=== PATIENT | male | born 1980 | race Two or more races ===

== ENCOUNTER 2018-09-04 14:42 | Inpatient (IN) | payer OTHER ==
[~2018-09-04] VITALS: Ht 175.3 cm; Wt 81.2 kg
[2018-09-15] MEDS ORDERED: OMEPRAZOLE20 MG PO (08:27)
[2018-09-15] MEDS ORDERED: PERCOCET 5-3251 EACH PO (08:27)
[2018-09-15] MEDS ORDERED: INTESTINEX680 M1 PO (08:27)
== END 2018-09-15 10:22 | disposition home or self-care (01) | DRG 331 ==
LOC: ADM 09-08 14:15 → EDSTATUS 09-08 14:15 → O/R 09-12 06:45 → SURH 09-12 07:00 → SURG 09-12 15:21
PROVIDERS: ADMIT Surgery
PROC: 07TC4ZZ Resection of Pelvis Lymphatic, Percutaneous Endoscopic Approach (ICD-10-PCS; 2018-09-12)
PROC: 0DTN4ZZ Resection of Sigmoid Colon, Percutaneous Endoscopic Approach (ICD-10-PCS; principal; 2018-09-12 07:00)
DX: C19 Malignant neoplasm of rectosigmoid junction (principal); R59.0 Localized enlarged lymph nodes; D50.0 Iron deficiency anemia secondary to blood loss (chronic)

== ENCOUNTER → 2018-09-05 | Outpatient (CLI) | payer OTHER ==
[~2018-09-05] MED LIST: INTESTINEX680 M1 PO; OMEPRAZOLE20 MG PO; PERCOCET 5-3251 EACH PO
== END | disposition home or self-care (01) ==
LOC: NUCLEAR 10:32
DX: C19 Malignant neoplasm of rectosigmoid junction (principal)
CPT/HCPCS: 78815; A9552

== ENCOUNTER 2018-09-11 11:13 | Day surgery (SDC) | payer OTHER | END 2018-09-11 14:25 | disposition home or self-care (01) | LOC: AMB-ENDOS 11:13 | DX: C19 Malignant neoplasm of rectosigmoid junction (principal) ==

== ENCOUNTER 2018-10-17 07:39 | Day surgery (SDC) | payer OTHER ==
[2018-10-17] MEDS ORDERED: PERCOCET 5-3251 EACH PO (10:50)
== END 2018-10-17 13:20 | disposition home or self-care (01) ==
LOC: CIR.AMB 07:39
DX: C19 Malignant neoplasm of rectosigmoid junction (principal)
CPT/HCPCS: 36561; C1751

== ENCOUNTER 2019-07-27 06:45 | Day surgery (SDC) | payer OTHER | END 2019-07-27 11:10 | disposition home or self-care (01) | LOC: AMB-ENDOS 06:45 | DX: D12.0 Benign neoplasm of cecum (principal); D12.4 Benign neoplasm of descending colon ==

== ENCOUNTER 2020-08-30 08:39 | Outpatient (CLI) | payer OTHER | END 2020-08-30 08:51 | disposition home or self-care (01) | LOC: NUCLEAR 08:39 | PROVIDERS: ATTEND Internal Medicine | DX: C19 Malignant neoplasm of rectosigmoid junction (principal); Z51.11 Encounter for antineoplastic chemotherapy; R91.1 Solitary pulmonary nodule | CPT/HCPCS: 78815; A9552 ==

== ENCOUNTER 2022-02-12 07:42 | Outpatient (CLI) | payer OTHER | END 2022-02-12 07:44 | disposition home or self-care (01) | LOC: NUCLEAR 07:42 | PROVIDERS: ATTEND Internal Medicine | DX: C19 Malignant neoplasm of rectosigmoid junction (principal); C78.01 Secondary malignant neoplasm of right lung | CPT/HCPCS: 78812; A9552 ==

== ENCOUNTER 2023-01-08 12:41 | Outpatient (CLI) | payer OTHER | END 2023-01-08 12:42 | disposition home or self-care (01) | LOC: LAB 12:41 | PROVIDERS: ATTEND Internal Medicine Pulmonary Disease | DX: Z01.811 Encounter for preprocedural respiratory examination (principal) ==

== ENCOUNTER 2023-01-30 08:59 | Inpatient (IN) | payer OTHER ==
[~2023-01-30] VITALS: Ht 175.3 cm; Wt 72.6 kg
[2023-01-30] MEDS ORDERED: CIALIS5 MG PO (11:12)
[2023-02-09] MEDS ORDERED: LOPERAMIDE2 MG PO (16:34)
[2023-02-09] MEDS ORDERED: HYOSCYAMINE0.125 M1 SL (16:34)
[2023-02-09] MEDS ORDERED: PERCOCET 5-3251 EACH PO (16:35)
== END 2023-02-09 17:02 | disposition home or self-care (01) | DRG 330 ==
LOC: O/R 02-05 07:26 → SURG 02-05 09:15 → O/R 02-05 13:27 → SURH 02-05 16:45
PROVIDERS: Surgery; ADMIT Surgery; ATTEND Surgery
PROC: 0DTN4ZZ Resection of Sigmoid Colon, Percutaneous Endoscopic Approach (ICD-10-PCS; 2023-02-05)
PROC: 0DTP4ZZ Resection of Rectum, Percutaneous Endoscopic Approach (ICD-10-PCS; 2023-02-05)
PROC: 0T7D3DZ Dilation of Urethra with Intraluminal Device, Percutaneous Approach (ICD-10-PCS; 2023-02-05)
PROC: 0D1B4Z4 Bypass Ileum to Cutaneous, Percutaneous Endoscopic Approach (ICD-10-PCS; principal; 2023-02-05 10:30)
PROC: 07BB4ZZ Excision of Mesenteric Lymphatic, Percutaneous Endoscopic Approach (ICD-10-PCS; 2023-02-05 10:30)
DX: C20 Malignant neoplasm of rectum (principal); K62.5 Hemorrhage of anus and rectum; R59.0 Localized enlarged lymph nodes; Z20.822 Contact with and (suspected) exposure to COVID-19

== ENCOUNTER 2023-02-11 15:16 | Inpatient (IN) | payer OTHER ==
[~2023-02-11] VITALS: Ht 175.3 cm; Wt 83.5 kg
[~2023-02-11 15:16] MED LIST changes: +CIALIS5 MG PO; +HYOSCYAMINE0.125 M1 SL; +LOPERAMIDE2 MG PO
[2023-02-12] MEDS ORDERED: LOPERAMIDE2 MG (09:30)
[2023-02-14] MEDS ORDERED: CIPRO500 MG PO (12:20)
[2023-02-14] MEDS ORDERED: HYOSCYAMINE0.125 M1 SL (12:20)
[2023-02-14] MEDS ORDERED: METRONIDAZOLE500 MG PO (12:22)
== END 2023-02-14 13:42 | disposition home or self-care (01) | DRG 389 ==
LOC: ER 15:16 → SURG 21:50
PROVIDERS: ADMIT Surgery; ATTEND Surgery
PROC: BW21YZZ Computerized Tomography (CT Scan) of Abdomen and Pelvis using Other Contrast (ICD-10-PCS; principal; 2023-02-11)
PROC: 02HV33Z Insertion of Infusion Device into Superior Vena Cava, Percutaneous Approach (ICD-10-PCS; 2023-02-12)
DX: K56.699 Other intestinal obstruction unspecified as to partial versus complete obstruction (principal); C19 Malignant neoplasm of rectosigmoid junction; K52.89 Other specified noninfective gastroenteritis and colitis; D64.9 Anemia, unspecified; Z93.2 Ileostomy status; Z20.822 Contact with and (suspected) exposure to COVID-19

== ENCOUNTER 2023-10-03 11:15 | Inpatient (IN) | payer OTHER ==
[~2023-10-03] VITALS: Ht 175.3 cm; Wt 76.2 kg
[~2023-10-03 11:15] MED LIST changes: +CIPRO500 MG PO; +LOPERAMIDE2 MG; +METRONIDAZOLE500 MG PO
[2023-10-11] MEDS ORDERED: METRONIDAZOLE/SODIUM CHLORIDE 500 MG/100 ML PIGGYBACK IV ONE ×2 (09:46→11:30)
[2023-10-11] MEDS ORDERED: CEFTRIAXONE SODIUM 2,000 MG VIAL ONE (09:46)
[2023-10-11] MEDS ORDERED: POVIDONE-IODINE 118 ML BOTT TOP ONE ×2 (11:06→11:30)
[2023-10-11] MEDS ORDERED: CEFTRIAXONE SODIUM 2,000 MG VIAL IV ONE (11:30)
[2023-10-11] MEDS ORDERED: ONDANSETRON HCL 2 MG/ML VIAL IV PRN (12:30)
[2023-10-11] MEDS ORDERED: DEXTROSE 50 % IN WATER 0.5 G/ML DISP.SYRIN IV PRN (12:30)
[2023-10-11] MEDS ORDERED: MORPHINE SULFATE 4 MG/ML CARTRIDGE IV PRN (12:30)
[2023-10-11] MEDS ORDERED: RINGERS SOLUTION,LACTATED 1,000 ML IV SCH (12:30)
[2023-10-11] MEDS ORDERED: OxyCODONE HCL 5 MG TABLET (ROXICODONE) PO PRN (12:30)
[2023-10-11] MEDS ORDERED: HYOSCYAMINE SULFATE 0.125 MG TAB.SUBL SL SCH (13:00)
[2023-10-11] MEDS ORDERED: ACETAMINOPHEN 500 MG GEL..CAP PO SCH (14:00)
[2023-10-11] MEDS ORDERED: GABAPENTIN 300 MG CAPSULE PO SCH (17:00)
[2023-10-11] MEDS ORDERED: POLYETHYLENE GLYCOL 3350 17 GM BLIST.PACK PO SCH (17:00)
[2023-10-11 17:08] LABS: HEMOGLOBIN 13.6 g/dL (13-16.00); MEAN CELL VOLUME 87.8 fL (80.0-100.00); MEAN CORPUSCULAR HEMOGLOBIN 29.2 pg (27.00-32.0); MEAN CORPUSCULAR HGB CONC 33.2 g/dl (32.0-36.0); PLATELET COUNT 217 K/uL (150-450); RED BLOOD COUNT 4.67 M/uL (4.00-6.00); RED CELL DISTRIBUTION WIDTH 14.2 % (11.5-14.5)
[2023-10-11 17:43] LABS: CALCIUM 9.2 mg/dL (8.5-10.1); CREATININE SERUM 1.08 mg/dL (0.70-1.30); GFR 75.35; MAGNESIUM 1.9 mg/dL (1.8-2.4); PHOSPHOROUS 3.4 mg/dL (2.5-4.9); POTASSIUM 4.36 mEq/L (3.5-5.1)
[2023-10-11] MEDS ORDERED: FAMOTIDINE/PF 20 MG/2 ML VIAL IV PUSH SCH (21:00)
[2023-10-11] MEDS ORDERED: CELECOXIB 200 MG CAPSULE PO SCH (21:00)
[2023-10-12 08:13] LABS: ALBUMIN 3.3 gm/dL (3.4-5.0); CALCIUM 8.4 mg/dL (8.5-10.1); CREATININE SERUM 0.92 mg/dL (0.70-1.30); GFR 90.66; MAGNESIUM 1.9 mg/dL (1.8-2.4); PHOSPHOROUS 3.2 mg/dL (2.5-4.9); POTASSIUM 3.86 mEq/L (3.5-5.1)
[2023-10-12 08:14] LABS: HEMATOCRIT 37.8 % (39.0-48.0); HEMOGLOBIN 12.9 g/dL (13-16.00); MEAN CELL VOLUME 89.6 fL (80.0-100.00); MEAN CORPUSCULAR HEMOGLOBIN 30.6 pg (27.00-32.0); MEAN CORPUSCULAR HGB CONC 34.2 g/dl (32.0-36.0); PLATELET COUNT 200 K/uL (150-450); RED BLOOD COUNT 4.22 M/uL (4.00-6.00); RED CELL DISTRIBUTION WIDTH 13.7 % (11.5-14.5)
[2023-10-12] MEDS ORDERED: ENOXAPARIN SODIUM 40 MG/0.4 ML SYRINGE SUBCUTANEO SCH (17:00)
[2023-10-13 07:28] LABS: CREATININE SERUM 0.88 mg/dL (0.70-1.30); GFR 95.43; MAGNESIUM 1.9 mg/dL (1.8-2.4); PHOSPHOROUS 2.8 mg/dL (2.5-4.9); POTASSIUM 4.16 mEq/L (3.5-5.1)
[2023-10-13 08:05] LABS: HEMATOCRIT 38.7 % (39.0-48.0); MEAN CELL VOLUME 89.7 fL (80.0-100.00); MEAN CORPUSCULAR HEMOGLOBIN 30.1 pg (27.00-32.0); MEAN CORPUSCULAR HGB CONC 33.6 g/dl (32.0-36.0); PLATELET COUNT 195 K/uL (150-450); RED BLOOD COUNT 4.32 M/uL (4.00-6.00); RED CELL DISTRIBUTION WIDTH 13.9 % (11.5-14.5)
[2023-10-13] MEDS ORDERED: ENOXAPARIN SODIUM 40 MG/0.4 ML SYRINGE SUBCUTANEO SCH (09:00)
[2023-10-14] MEDS ORDERED: NEURONTIN300 MG PO (07:09)
[2023-10-14] MEDS ORDERED: 8 HOUR PAIN RE650 M1 PO (07:09)
== END 2023-10-14 12:20 | disposition home or self-care (01) | DRG 348 ==
LOC: SURH 10-11 07:49 → O/R 10-11 07:49 → SURH 10-11 11:15
PROVIDERS: Internal Medicine Geriatric Medicine; ADMIT Surgery; ATTEND Surgery
PROC: 0DBB4ZZ Excision of Ileum, Percutaneous Endoscopic Approach (ICD-10-PCS; principal; 2023-10-11 13:15)
DX: Z43.2 Encounter for attention to ileostomy (principal); C19 Malignant neoplasm of rectosigmoid junction; R59.0 Localized enlarged lymph nodes

== ENCOUNTER 2023-11-04 20:26 | Inpatient (IN) | payer OTHER ==
[~2023-11-04] VITALS: Ht 167.6 cm; Wt 81.6 kg
[~2023-11-04 20:26] MED LIST changes: +8 HOUR PAIN RE650 M1 PO; +NEURONTIN300 MG PO
[2023-11-04] MEDS ORDERED: KETOROLAC TROMETHAMINE 30 MG VIAL IV ONE (22:45)
[2023-11-04] MEDS ORDERED: HYOSCYAMINE SULFATE 0.125 MG TAB.SUBL SL ONE (22:45)
[2023-11-04] MEDS ORDERED: 0.9 % SODIUM CHLORIDE 1,000 ML IV ONE (22:45)
[2023-11-04] MEDS ORDERED: FAMOTIDINE/PF 20 MG/2 ML VIAL IV PUSH ONE (22:45)
[2023-11-05 00:05] LABS: ALBUMIN 3.6 gm/dL (3.4-5.0); BILIRUBIN TOTAL 0.54 mg/dL (0.3-1.2); CREATININE SERUM 0.89 mg/dL (0.70-1.30); GFR 94.2; GLOBULINA 3.6 G/DL (2.4-3.5); POTASSIUM 4.13 mEq/L (3.5-5.1); TOTAL PROTEIN 7.2 gm/dL (6.4-8.2)
[2023-11-05 01:11] LABS: HEMOGLOBIN 12.6 g/dL (13-16.00); MEAN CELL VOLUME 89.1 fL (80.0-100.00); MEAN CORPUSCULAR HEMOGLOBIN 29.6 pg (27.00-32.0); MEAN CORPUSCULAR HGB CONC 33.2 g/dl (32.0-36.0); PLATELET COUNT 259 K/uL (150-450); RED BLOOD COUNT 4.27 M/uL (4.00-6.00); RED CELL DISTRIBUTION WIDTH 13.7 % (11.5-14.5)
[2023-11-05] MEDS ORDERED: 0.9 % SODIUM CHLORIDE 1,000 ML IV SCH (12:15)
[2023-11-05] MEDS ORDERED: MORPHINE SULFATE 4 MG/ML VIAL IV PRN (12:15)
[2023-11-05 13:23] LABS: ALBUMIN 3.4 gm/dL (3.4-5.0); CALCIUM 8.8 mg/dL (8.5-10.1); CREATININE SERUM 0.87 mg/dL (0.70-1.30); GFR 96.7; PHOSPHOROUS 2.6 mg/dL (2.5-4.9); POTASSIUM 3.89 mEq/L (3.5-5.1)
[2023-11-05] MEDS ORDERED: AA 4.25%/CAL/LYTES/DEXT 5% 1,000 ML PERIFERAL SCH (17:00)
[2023-11-05] MEDS ORDERED: METRONIDAZOLE/SODIUM CHLORIDE 500 MG/100 ML PIGGYBACK IV SCH (17:00)
[2023-11-05] MEDS ORDERED: MORPHINE SULFATE 4 MG/ML CARTRIDGE IV SCH (18:00)
[2023-11-05] MEDS ORDERED: FAMOTIDINE/PF 20 MG/2 ML VIAL IV SCH (21:00)
[2023-11-05] MEDS ORDERED: CIPROFLOXACIN IN 5 % DEXTROSE 400 MG/200 ML PIGGYBAG IV SCH (21:00)
[2023-11-06 07:08] LABS: HEMATOCRIT 36.1 % (39.0-48.0); HEMOGLOBIN 12.2 g/dL (13-16.00); MEAN CELL VOLUME 89.4 fL (80.0-100.00); MEAN CORPUSCULAR HEMOGLOBIN 30.2 pg (27.00-32.0); MEAN CORPUSCULAR HGB CONC 33.8 g/dl (32.0-36.0); PLATELET COUNT 214 K/uL (150-450); RED BLOOD COUNT 4.04 M/uL (4.00-6.00); RED CELL DISTRIBUTION WIDTH 13.4 % (11.5-14.5)
[2023-11-06] MEDS ORDERED: ENOXAPARIN SODIUM 40 MG/0.4 ML SYRINGE SUBCUTANEO SCH (09:00)
[2023-11-08] MEDS ORDERED: AMOX1TAB5 PO (12:27)
[2023-11-08] MEDS ORDERED: INTESTINEX680 M1 PO (12:27)
[2023-11-08] MEDS ORDERED: PRILOSEC OTC20 MG PO (12:27)
== END 2023-11-08 14:12 | disposition home or self-care (01) | DRG 392 ==
LOC: ER 20:27 → SEC-K 11-05 12:46 → SURH 11-06 16:45
PROVIDERS: General Practice; ADMIT Surgery; ATTEND Surgery
PROC: BW21YZZ Computerized Tomography (CT Scan) of Abdomen and Pelvis using Other Contrast (ICD-10-PCS; 2023-11-04)
PROC: 02HV33Z Insertion of Infusion Device into Superior Vena Cava, Percutaneous Approach (ICD-10-PCS; principal; 2023-11-07)
PROC: 3E0436Z Introduction of Nutritional Substance into Central Vein, Percutaneous Approach (ICD-10-PCS; 2023-11-07)
DX: K52.9 Noninfective gastroenteritis and colitis, unspecified (principal); C19 Malignant neoplasm of rectosigmoid junction; D64.9 Anemia, unspecified

== ENCOUNTER 2024-02-24 08:04 | Outpatient (CLI) | payer OTHER ==
[~2024-02-24 08:04] MED LIST changes: +AMOX1TAB5 PO; +PRILOSEC OTC20 MG PO
== END 2024-02-24 08:05 | disposition home or self-care (01) ==
LOC: NUCLEAR 08:04
DX: C34.31 Malignant neoplasm of lower lobe, right bronchus or lung (principal)

== ENCOUNTER 2024-12-17 13:24 | Emergency (ER) | payer OTHER ==
[~2024-12-17] VITALS: Ht 175.3 cm; Wt 75.7 kg
[2024-12-17 13:41] VITALS: BP 150/90; O2SAT 98
[2024-12-17] MEDS ORDERED: BARIUM SULFATE 450 ML ORAL.SUSP PO ONE (14:15)
[2024-12-17 14:48] LABS: HEMATOCRIT 44.3 % (39.0-48.0); HEMOGLOBIN 14.8 g/dL (13-16.00); MEAN CELL VOLUME 90.4 fL (80.0-100.00); MEAN CORPUSCULAR HEMOGLOBIN 30.2 pg (27.00-32.0); MEAN CORPUSCULAR HGB CONC 33.4 g/dl (32.0-36.0); PLATELET COUNT 215 K/uL (150-450); RED CELL DISTRIBUTION WIDTH 13.4 % (11.5-14.5)
[2024-12-17 14:50] LABS: PH,URINE 5.5 (5.0-8.0); URINE APPEARANCE Clear; URINE BILIRRUBIN Negative (NEGATIVE); URINE BLOOD Negative; URINE COLOR Dark Yellow; URINE GLUCOSE Negative (NEGATIVE); URINE LEUKOCYTE Negative; URINE NITRATE Negative; URINE PROTEIN Trace (NEGATIVE)
[2024-12-17 14:52] LABS: URINE BACTERIA 20.8 uL (0.0-1933); URINE CAST 1.76 uL (0.0-1.40); URINE EPITHELIAL CELLS 7.9 uL (0.0-38.8); URINE RBC 3.3 uL (0.0-20.8)
[2024-12-17 14:53] LABS: URINE KETONE 40 (NEGATIVE)
[2024-12-17 15:18] LABS: CALCIUM 9.4 mg/dL (8.5-10.1); CREATININE SERUM 1.04 mg/dL (0.70-1.30); GFR 77.94; POTASSIUM 4.02 mEq/L (3.5-5.1)
[2024-12-17] MEDS ORDERED: DICLOFENAC SODI75 MG PO (20:44)
== END 2024-12-17 21:11 | disposition home or self-care (01) ==
LOC: ER 13:24
PROVIDERS: Emergency Medicine
DX: R10.9 Unspecified abdominal pain (principal)
CPT/HCPCS: 36415; 74177; Q9965

== ENCOUNTER 2024-12-19 22:10 | Inpatient (IN) | payer OTHER ==
[~2024-12-19] VITALS: Ht 175.3 cm; Wt 80.3 kg
[~2024-12-19 22:10] MED LIST changes: +DICLOFENAC SODI75 MG PO
--- NOTE | 2024-12-19 22:22 | NUR ---
PACIENTE ALERTA Y ORIENTADO X3. REFIERE MOI VENIDO A JAREK LA SEMANA PASADA POR DOLOR ABDOMINAL SHON QUE EL MISMO NO VISHAL A PESAR DE ESTAR EN TX. SE DANIE S/V Y SE UBICA.
[2024-12-19] MEDS ORDERED: MORPHINE SULFATE 4 MG/ML VIAL IV ONE (22:45)
[2024-12-19] MEDS ORDERED: 0.9 % SODIUM CHLORIDE 1,000 ML IV ONE (23:00)
[2024-12-19] MEDS ORDERED: FAMOtidine 10 MG/ML (4ML VIAL) IV ONE (23:00)
[2024-12-19] MEDS ORDERED: FAMOTIDINE/PF 20 MG/2 ML VIAL ONE (23:24)
[2024-12-19] MEDS ORDERED: BARIUM SULFATE 450 ML ORAL.SUSP PO ONE (23:26)
[2024-12-19 23:58] LABS: HEMATOCRIT 42.9 % (39.0-48.0); HEMOGLOBIN 14.5 g/dL (13-16.00); MEAN CELL VOLUME 88.9 fL (80.0-100.00); MEAN CORPUSCULAR HGB CONC 33.7 g/dl (32.0-36.0); PLATELET COUNT 215 K/uL (150-450); RED BLOOD COUNT 4.83 M/uL (4.00-6.00); RED CELL DISTRIBUTION WIDTH 13.7 % (11.5-14.5)
[2024-12-20 02:09] LABS: INR 1.01; PARTIAL THROMBOPLASTIN TIME 27.3 SECONDS (22.0-34.0)
[2024-12-20 02:17] LABS: ALBUMIN 3.8 gm/dL (3.4-5.0); BILIRUBIN TOTAL 0.58 mg/dL (0.3-1.2); CREATININE SERUM 0.98 mg/dL (0.70-1.30); GFR 83.48; GLOBULINA 3.6 G/DL (2.4-3.5); POTASSIUM 4.47 mEq/L (3.5-5.1); TOTAL PROTEIN 7.4 gm/dL (6.4-8.2)
[2024-12-20 03:20] LABS: PH,URINE 5.5 (5.0-8.0); URINE APPEARANCE Clear; URINE BILIRRUBIN Negative (NEGATIVE); URINE BLOOD Negative; URINE COLOR Yellow; URINE GLUCOSE Negative (NEGATIVE); URINE LEUKOCYTE Negative; URINE NITRATE Negative; URINE PROTEIN Negative (NEGATIVE)
[2024-12-20 03:23] LABS: URINE BACTERIA 17.1 uL (0.0-1933); URINE EPITHELIAL CELLS 1.5 uL (0.0-38.8); URINE WBC 5.3 uL (0.0-23.2)
[2024-12-20 03:55] LABS: URINE KETONE 40 (NEGATIVE); URINE RBC 1.7 uL (0.0-20.8)
--- NOTE | 2024-12-20 06:41 | NUR ---
PTE ALERTA Y ORIENTADO X3 SE REALIZAN MUESTRAS DE LAB. SE REALIZA VENOPUNCION, Y SE ADMINSITRA MEDICAMENTO FORREST ORDEN MEDICA Y BAJO MEDIDAS ASEPTICAS.
[2024-12-20] MEDS ORDERED: MORPHINE SULFATE 4 MG/ML VIAL IV PRN ×2 (07:15→14:30)
--- NOTE | 2024-12-20 07:20 | NUR ---
SE RECIBE PTE ALERTA Y ORIENTADO X3 EN KINJAL BAJA CON BARANDAS ELEVADAS EN COMPANIA DE FAMILIAR. CANALIZADO EN BRAZO DERECHO CON ANGIO #20 PATENTE UMAIR DE EDEMA Y ENROJECIMIENTO. RECIBIENDO .9NSS BAJANDO A 100MLS/HR. PENDIENTE RE-EVALUACION MEDICA.
--- NOTE | 2024-12-20 07:30 | NUR ---
DR. NGUYEN HABLA CON PTE Y PTE REHUSA NGT. REFIERE ESPERARA QUE ANETTEGA DR. SINDI BERNARD.
[2024-12-20] MEDS ORDERED: ONDANSETRON HCL 2 MG/ML VIAL ONE (07:36)
[2024-12-20] MEDS ORDERED: ONDANSETRON HCL 2 MG/ML VIAL IV SCH (09:00)
[2024-12-20] MEDS ORDERED: PIPERACILLIN/TAZOBACTAM SODIUM 3.375 GM VIAL IV STA (12:03)
[2024-12-20] MEDS ORDERED: PIPERACILLIN/TAZOBACTAM SODIUM 3.375 GM VIAL IV ONE (13:33)
[2024-12-20] MEDS ORDERED: RINGERS SOLUTION,LACTATED 1,000 ML IV SCH (14:30)
[2024-12-20] MEDS ORDERED: ONDANSETRON HCL 2 MG/ML VIAL IV PRN (14:30)
[2024-12-20 15:35] VITALS: BP 109/77; O2SAT 98
[2024-12-20] MEDS ORDERED: MORPHINE SULFATE 4 MG/ML CARTRIDGE IV PRN (16:30)
[2024-12-20 17:42] VITALS: BP 130/87; O2SAT 97
[2024-12-20] MEDS ORDERED: FAMOTIDINE/PF 20 MG/2 ML VIAL IV SCH (21:00)
[2024-12-21 00:28] VITALS: BP 132/79; O2SAT 95
[2024-12-21 06:31] LABS: HEMATOCRIT 36.9 % (39.0-48.0); HEMOGLOBIN 12.3 g/dL (13-16.00); MEAN CELL VOLUME 90.4 fL (80.0-100.00); MEAN CORPUSCULAR HEMOGLOBIN 30.2 pg (27.00-32.0); MEAN CORPUSCULAR HGB CONC 33.4 g/dl (32.0-36.0); PLATELET COUNT 175 K/uL (150-450); RED BLOOD COUNT 4.09 M/uL (4.00-6.00); RED CELL DISTRIBUTION WIDTH 13.1 % (11.5-14.5)
[2024-12-21] MEDS ORDERED: HYOSCYAMINE SULFATE 0.125 MG TAB.SUBL SL PRN (07:45)
[2024-12-21 07:56] LABS: ALBUMIN 3.3 gm/dL (3.4-5.0); CALCIUM 8.7 mg/dL (8.5-10.1); CREATININE SERUM 0.93 mg/dL (0.70-1.30); GFR 88.68; PHOSPHOROUS 2.9 mg/dL (2.5-4.9); POTASSIUM 4.59 mEq/L (3.5-5.1)
[2024-12-21 08:12] VITALS: BP 118/74; O2SAT 95
[2024-12-21] MEDS ORDERED: ENOXAPARIN SODIUM 40 MG/0.4 ML SYRINGE SUBCUTANEO SCH (09:00)
[2024-12-21] MEDS ORDERED: AA 5 % NO.6/DEXTROSE 15 % 2,000 ML CENTRAL SCH (17:00)
[2024-12-21 17:21] VITALS: BP 109/75; O2SAT 99
[2024-12-21 18:25] LABS: CALCIUM 8.7 mg/dL (8.5-10.1); CHOL HDL RATIO 4.1 (0-5.0); CREATININE SERUM 0.73 mg/dL (0.70-1.30); GFR 117.26; POTASSIUM 3.82 mEq/L (3.5-5.1)
[2024-12-22 01:01] VITALS: BP 101/64; O2SAT 94
[2024-12-22 06:55] LABS: HEMOGLOBIN 12.4 g/dL (13-16.00); MEAN CELL VOLUME 88.2 fL (80.0-100.00); MEAN CORPUSCULAR HEMOGLOBIN 30.4 pg (27.00-32.0); MEAN CORPUSCULAR HGB CONC 34.4 g/dl (32.0-36.0); PLATELET COUNT 189 K/uL (150-450); RED BLOOD COUNT 4.08 M/uL (4.00-6.00)
[2024-12-22 07:08] LABS: CALCIUM 8.6 mg/dL (8.5-10.1); CREATININE SERUM 0.96 mg/dL (0.70-1.30); GFR 85.49; MAGNESIUM 1.9 mg/dL (1.8-2.4); PHOSPHOROUS 3.3 mg/dL (2.5-4.9); POTASSIUM 4.12 mEq/L (3.5-5.1)
[2024-12-22 08:00] VITALS: BP 114/75; O2SAT 97
[2024-12-22 16:00] VITALS: BP 110/72; O2SAT 97
[2024-12-23 00:44] VITALS: BP 111/72; O2SAT 100
[2024-12-23 08:05] VITALS: BP 113/75; O2SAT 97
[2024-12-23] MEDS ORDERED: POLYETHYLENE GLYCOL 3350 17 GM BLIST.PACK PO SCH (09:00)
[2024-12-23 16:00] VITALS: BP 115/80; O2SAT 97
[2024-12-24 01:16] VITALS: BP 108/65; O2SAT 100
[2024-12-24 08:00] VITALS: BP 111/74; O2SAT 98
[2024-12-24 16:00] VITALS: BP 105/71; O2SAT 98
[2024-12-25 00:44] VITALS: BP 113/74; O2SAT 95
[2024-12-25 08:00] VITALS: BP 129/84; O2SAT 98
[2024-12-25 16:00] VITALS: BP 130/84; O2SAT 98
== END 2024-12-26 00:54 | disposition home or self-care (01) | DRG 390 ==
LOC: EMR PED 22:11 → ER 22:11 → EMR PED 22:23 → SURG 12-20 14:57 → SURH 12-20 14:57 → O/R 12-23 13:53 → SURH 12-23 13:54
PROVIDERS: Colon & Rectal Surgery; General Practice; Internal Medicine Geriatric Medicine; ADMIT Surgery; ATTEND Surgery
PROC: BW21YZZ Computerized Tomography (CT Scan) of Abdomen and Pelvis using Other Contrast (ICD-10-PCS; 2024-12-19)
PROC: 02HV33Z Insertion of Infusion Device into Superior Vena Cava, Percutaneous Approach (ICD-10-PCS; principal; 2024-12-21)
PROC: 3E0436Z Introduction of Nutritional Substance into Central Vein, Percutaneous Approach (ICD-10-PCS; 2024-12-21)
DX: K56.600 Partial intestinal obstruction, unspecified as to cause (principal); K59.00 Constipation, unspecified